=== PATIENT | male | born 1955 | race Caucasian/White ===

== ENCOUNTER 2024-05-23 10:16 | Outpatient (CLI) | payer MEDICARE, SELFPAY ==
--- NOTE | 2024-05-23 10:18 | XRR_ITS ---
PROCEDURE INFORMATION: Exam: XR Left Femur Exam date and time: 05/23/2024 10:37 AM Age: 68 years old Clinical indication: Pain; Thigh; Left; Additional info: M79.605 - pain in left leg TECHNIQUE: Imaging protocol: Radiologic exam of the left femur. Views: 2 views. COMPARISON: CR XR knee LT 3V* [id number] 05/23/2024 10:37 AM FINDINGS: Bones/joints: Unremarkable. No acute fracture. Soft tissues: Unremarkable. XR/XR femur LT min 2V* [id number] IMPRESSION: No acute findings.
--- NOTE | 2024-05-23 10:18 | XRR_ITS ---
PROCEDURE INFORMATION: Exam: XR Left Knee Exam date and time: 05/23/2024 10:37 AM Age: 68 years old Clinical indication: Pain; Knee; Left; Additional info: M79.605 - pain in left leg TECHNIQUE: Imaging protocol: Radiologic exam of the left knee. Views: 3 views. COMPARISON: CR XR femur LT min 2V* [id number] 05/23/2024 10:37 AM FINDINGS: Bones/joints: Normal. Soft tissues: Normal. XR/XR knee LT 3V* [id number] IMPRESSION: No acute findings.
== END 2024-05-23 10:17 | disposition home or self-care (01) ==
LOC: RAD 10:17
PROVIDERS: PCP Nurse Practitioner Family; Visit Provider Nurse Practitioner Family
DX: M79.605 Pain in left leg (principal); M25.562 Pain in left knee
CPT/HCPCS: 73552; 73562

== ENCOUNTER → 2024-05-24 08:55 | Outpatient (BNVA) | payer MEDICARE, SELFPAY | PROVIDERS: PCP Nurse Practitioner Family; Visit Provider Nurse Practitioner Family | DX: I10 Essential (primary) hypertension (principal); E55.9 Vitamin D deficiency, unspecified | CPT/HCPCS: 80053; 80061; 82306; 82607; 83735; 84443; 85025 ==

== ENCOUNTER → 2024-06-13 08:30 | Outpatient (BNVA) | payer MEDICARE, SELFPAY | PROVIDERS: PCP Nurse Practitioner Family; Visit Provider Nurse Practitioner Family | DX: E78.5 Hyperlipidemia, unspecified (principal) | CPT/HCPCS: 84439; 84443 ==

== ENCOUNTER → 2024-07-25 11:30 | Outpatient (BNVA) | payer MEDICARE, SELFPAY | PROVIDERS: PCP Nurse Practitioner Family; Visit Provider Nurse Practitioner Family | DX: Z79.899 Other long term (current) drug therapy (principal); I10 Essential (primary) hypertension | CPT/HCPCS: 80053; 80061; 82306; 84443; 85025 ==

== ENCOUNTER → 2024-10-17 09:06 | Outpatient (BNVA) | payer MEDICARE, SELFPAY | PROVIDERS: PCP Nurse Practitioner Family; Visit Provider Nurse Practitioner Family | DX: E03.9 Hypothyroidism, unspecified (principal) | CPT/HCPCS: 84443 ==

== ENCOUNTER → 2025-01-24 10:35 | Outpatient (BNVA) | payer MEDICARE, SELFPAY | PROVIDERS: PCP Nurse Practitioner Family; Visit Provider Nurse Practitioner Family | DX: I10 Essential (primary) hypertension (principal); E78.5 Hyperlipidemia, unspecified; E55.9 Vitamin D deficiency, unspecified; Z12.5 Encounter for screening for malignant neoplasm of prostate | CPT/HCPCS: 80053; 80061; 82306; 84443; 85025; G0103 ==

== ENCOUNTER → 2025-08-15 10:38 | Outpatient (BNVA) | payer MEDICARE, SELFPAY | PROVIDERS: PCP Nurse Practitioner Family; Visit Provider Nurse Practitioner Family | DX: E78.5 Hyperlipidemia, unspecified (principal); I10 Essential (primary) hypertension; E55.9 Vitamin D deficiency, unspecified | CPT/HCPCS: 80053; 80061; 82306; 84443; 85025 ==

== ENCOUNTER → 2025-09-26 10:20 | Outpatient (BNVA) | payer MEDICARE, SELFPAY | PROVIDERS: PCP Nurse Practitioner Family; Visit Provider Student in an Organized Health Care Education/Training Program | DX: Z12.11 Encounter for screening for malignant neoplasm of colon (principal) | CPT/HCPCS: 99204 ==

== ENCOUNTER 2025-10-08 06:17 | Day surgery (SDC) | payer MEDICARE, SELFPAY ==
[2025-10-08 06:36] VITALS: BP 172/86; PULSE 55; RESP 18; TEMP 36.3; O2SAT 99; BMI 33.9
--- NOTE | 2025-10-08 06:58 | ANES.PREANE2 ---
Pre-Anesthetic Assessment Height/Weight: Height 1.73 m Weight 101.151 kg Temp Pulse Resp BP Pulse Ox O2 Del Method 97.3 F L 55 L 18 172/86 99 Room Air 10/08/25 06:36 10/08/25 06:36 10/08/25 06:36 10/08/25 06:36 10/08/25 06:36 10/08/25 06:36 Preop Diagnosis: screen Operation Date: 10/08/25 07:30 Proposed Procedures p Colonoscopy 69695 G0105 R19.5(Not Applicable) - Castillo Nj MD Familial anesthetic complications: none Was Beta Elvia taken within 24 hours: Yes Was Clonidine taken within 24 hours: N/A Last intake: Intake Last Liquid Date 10/07/25 Last Liquid Time 20:00 Last Solid Date 10/06/25 Last Solid Time 20:00 Exam alert, oriented x 3, clear to auscultation bilaterally and regular rate & rhythm (distant heart tones) Airway Cervical ROM: within normal limits Mallampati: Class II Dentition: chipped Comments: Comments: multiple missing Pulmonary None reported CV/HEM Hypertension and Murmur (pt. reports being told he has had a murmur, none ascultated at this time. ) >4 METS None reported Hepatic None reported GI None reported Metabolic Hyperlipidemia, Morbid Obesity and Thyroid Disease [facility] [place] None reported Neuropsych None reported Anesthetic Plan ASA status: 3 Anesthesia: MAC Risk of > 500 ml blood loss (7ml/kg in children): No Medications/Allergies Home Medications ?Medication ?Instructions ?Recorded ?Confirmed ?Last Taken ?Type zoagamy-pirtwjvfo-ujtq tablet 1 tab PO DAILY 05/11/24 09/30/25 10/07/25 20:00 History cholecalciferol (vitamin D3) 50 50 mcg PO DAILY 01/24/25 09/30/25 10/07/25 20:00 History mcg (2,000 unit) capsule krill oil 500 mg capsule 500 mg PO DAILY 01/24/25 09/30/25 10/07/25 20:00 History hydrochlorothiazide 25 mg tablet 25 mg PO DAILY #90 tabs 08/14/25 09/30/25 10/07/25 20:00 Rx metoprolol tartrate 50 mg tablet 50 mg PO BID #180 tabs 08/14/25 09/30/25 10/08/25 05:00 Rx potassium citrate 99 mg capsule 99 mg PO DAILY 08/14/25 09/30/25 10/07/25 20:00 History selenium 200 mcg capsule 200 mcg PO DAILY 08/14/25 09/30/25 10/07/25 20:00 History spironolactone 25 mg tablet 25 mg PO DAILY #90 tabs 08/14/25 09/30/25 10/07/25 20:00 Rx enalapril maleate 20 mg tablet 20 mg PO BID 09/30/25 09/30/25 10/07/25 20:00 History levothyroxine 75 mcg tablet 75 mcg PO DAILY 09/30/25 09/30/25 10/08/25 05:00 History simvastatin 40 mg tablet 40 mg PO DAILY 09/30/25 09/30/25 10/07/25 20:00 History Allergies Allergy/AdvReac Type Severity Reaction Status Date / Time No Known Allergies Allergy Unverified 09/26/25 10:22 Current Medications Generic Name Dose Route Start Last Admin Trade Name Freq PRN Reason Stop Dose Admin Sodium Chloride 1,000 mls @ 15 mls/hr 10/08/25 06:28 10/08/25 06:50 Sodium Chloride 0.9% IV 10/09/25 06:27 15 mls/hr .Q24H PRN Administration COLONOSCOPY FLUIDS PFSH Anesthesia Medical History Hypothyroid Hypertension Hyperlipidemia Vitamin D deficiency Surgical History No pertinent past surgical history Family History (Updated 09/26/25 @ 10:27 by Abigail Campa, CT) Brother Cancer lung Hypertension Sister Hypertension Diabetes Social History Smoking and tobacco/nicotine status: former use of tobacco/nicotine Quit status (tobacco/nicotine): has quit using Year quit tobacco: 40 years ago
--- NOTE | 2025-10-08 07:06 | W.PM.OPSUD ---
Surgery/Procedure H&P Update DATE OF PROCEDURE: October 08, 2025 DATE H&P PERFORMED: 09/26/25 H&P UPDATE INFORMATION: I have reviewed H&P completed within last 30 days, I have examined patient prior to procedure, No changes to prior documentation and Risks and benefits of the procedure reviewed PREOP DIAGNOSIS: screen PLANNED PROCEDURE: Operation Date: 10/08/25 07:30 Proposed Procedures p Colonoscopy 76279 G0105 R19.5(Not Applicable) - Castillo Nj MD
[2025-10-08 07:46] VITALS: BP 109/65; PULSE 53; RESP 16; TEMP 36.4; O2SAT 98
[2025-10-08 07:50] VITALS: BP 125/73; PULSE 54; RESP 16; O2SAT 97
[2025-10-08 08:00] VITALS: BP 140/73; PULSE 56; RESP 18; O2SAT 98
[2025-10-08 08:10] VITALS: BP 156/76; PULSE 52; RESP 18; O2SAT 98
--- NOTE | 2025-10-08 08:25 | ANE.PACU2 ---
Inpatient post-anesthesia follow up: Airway intact: Yes Vital signs: Temperature 97.6 F Pulse Rate 52 Respiratory Rate 18 Blood Pressure 156/76 Pulse Oximetry 98 Oxygen Delivery Me thod Room Air Oxygen Flow Rate Fraction of Inspir ed Oxygen Hydration adequate: Yes Nausea and vomiting: No Pain level: 1 Mental status: Baseline
== END 2025-10-08 08:29 | disposition home or self-care (01) ==
PROVIDERS: PCP Nurse Practitioner Family; Visit Provider Student in an Organized Health Care Education/Training Program
PROC: 0DJD8ZZ Inspection of Lower Intestinal Tract, Via Natural or Artificial Opening Endoscopic (ICD-10-PCS; CPT 45378; principal; 2025-10-08 07:30)
DX: Z12.11 Encounter for screening for malignant neoplasm of colon (principal); D12.2 Benign neoplasm of ascending colon; K62.1 Rectal polyp; E03.9 Hypothyroidism, unspecified; I10 Essential (primary) hypertension; E78.5 Hyperlipidemia, unspecified; Z87.891 Personal history of nicotine dependence; E66.01 Morbid (severe) obesity due to excess calories; Z68.33 Body mass index [BMI] 33.0-33.9, adult; Z80.1 Family history of malignant neoplasm of trachea, bronchus and lung; Z83.3 Family history of diabetes mellitus; R01.1 Cardiac murmur, unspecified
CPT/HCPCS: 45380; 45385; 88305; J2704; J7030; J9999

== ENCOUNTER → 2025-10-21 07:53 | Outpatient (BNVA) | payer MEDICARE, SELFPAY | PROVIDERS: PCP Nurse Practitioner Family; Visit Provider Student in an Organized Health Care Education/Training Program | DX: Z51.89 Encounter for other specified aftercare (principal) | CPT/HCPCS: 99213 ==